=== PATIENT | female | born 2005 | race Caucasian/White ===

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

== ENCOUNTER → 2023-06-25 | Outpatient (CLI) | payer MEDICAID ==
[2023-06-25 15:52] LABS: Alcohol <10 mg/dL
[2023-06-25 20:49] LABS: Basophils # (A) 0.04 X 10*3/uL (0.00-0.10); Basophils % (A) 0.6 %; Eosinophils # (A) 0.11 X 10*3/uL (0.04-0.35); Eosinophils % (A) 1.6 %; HCT 42.5 % (37.2-46.3); HGB 14.3 d/dL (12.0-15.0); Lymphocytes # (A) 1.37 X 10*3/uL (0.90-5.00); Lymphocytes % (A) 20.4 %; MCH 30.8 pg (27.0-32.0); MCHC 33.6 d/dL (32.0-37.0); MCV 91.6 FL (80.0-97.0); Mean Platelet Volume 10.1 FL (9.5-12.2); Monocytes # (A) 0.39 X 10*3/uL (0.20-1.00); Monocytes % (A) 5.8 %; NRBC Per 100 WBC 0 X 10*3/uL (0.00-0.01); Neutrophils # (A) 4.79 X 10*3/uL (1.80-7.70); Neutrophils % (A) 71.3 %; Platelet Count 298 X 10*3/uL (140-440); RBC 4.64 X 10*6/uL (4.10-5.20); RDW 12.4 % (11.5-14.5); WBC 6.72 X 10*3/uL (4.50-10.00)
[2023-06-25 21:04] LABS: ALT 13 U/L (8-44); AST 13 U/L (13-35); Albumin 4.8 d/dL (3.8-4.9); Albumin/Globulin Ratio 2.09 Ratio (1.60-3.17); Alkaline Phosphatase 101 U/L (41-126); BUN/Creat Ratio 9.62 Ratio (12.00-20.00); Blood Urea Nitrogen 7.7 mg/dL (9.0-27.0); Calcium 9.8 mg/dL (8.7-10.3); Chloride 104 mmol/L (96-109); Chol/HDL Ratio 2.41 Ratio; Globulin 2.3 d/dL (1.6-3.3); Glucose 87 mg/dL (70-110); LDL Cholesterol,Calculated 90.8 mg/dL (0.0-131.0); Potassium 5.1 mmol/L (3.5-5.5); Sodium 143 mmol/L (135-145); T4, Free (Free Thyroxine) 1.42 ng/dL (0.83-1.43); Total Bilirubin 0.6 mg/dL (0.3-1.2); Total Protein 7.1 d/dL (6.2-8.2); VLDL Calculation 10.96 mg/dL (5.00-40.00)
== END | disposition home or self-care (01) ==
LOC: LABWHC1 13:35
PROVIDERS: ATTEND Family Medicine
DX: Z00.00 Encounter for general adult medical examination without abnormal findings (principal); Z11.8 Encounter for screening for other infectious and parasitic diseases; Z20.2 Contact with and (suspected) exposure to infections with a predominantly sexual mode of transmission
CPT/HCPCS: 36415; 80053; 80061; 80320; 84439; 84443; 85025; 87491; 87591

== ENCOUNTER → 2023-10-16 | Outpatient (CLI) | payer MEDICAID ==
[2023-10-16 18:24] LABS: HCT 39.4 % (37.2-46.3); HGB 13.7 g/dL (12.0-15.0); MCH 30.8 pg (27.0-32.0); MCHC 34.8 g/dL (32.0-37.0); MCV 88.5 FL (80.0-97.0); Mean Platelet Volume 9.6 FL (9.5-12.2); NRBC Per 100 WBC 0 X 10*3/uL (0.00-0.01); Platelet Count 266 X 10*3/uL (140-440); RBC 4.45 X 10*6/uL (4.10-5.20); RDW 12.4 % (11.5-14.5); WBC 8.54 X 10*3/uL (4.50-10.00)
[2023-10-16 18:31] LABS: Glucose 89 mg/dL (70-110)
[2023-10-16 18:52] LABS: Hepatitis B Surface Antigen Nonreactive; Hepatitis C IgG Antibody Nonreactive
[2023-10-16 20:14] LABS: HIV 2 AB Non-Reactive (Non-Reactive); HIV AB P24 Non-Reactive (Non-Reactive); HIV P24 AG Non-Reactive (Non-Reactive)
== END | disposition home or self-care (01) ==
LOC: LABWHC1 14:00
PROVIDERS: ATTEND Obstetrics & Gynecology
DX: Z34.81 Encounter for supervision of other normal pregnancy, first trimester (principal); Z3A.00 Weeks of gestation of pregnancy not specified
CPT/HCPCS: 36415; 82565; 82947; 85027; 86762; 86777; 86778; 86780; 86803; 86850; 86900; 86901; 87340; 87390

== ENCOUNTER → 2023-11-01 | Outpatient (CLI) | payer MEDICAID ==
--- NOTE | 2023-11-01 15:48 | US ---
EXAMINATION TYPE: Ultrasound OB <= 14 week fetus DATE OF EXAM: 11/01/2023 2:01 PM COMPARISON: NONE CLINICAL INDICATION: Female, 17 years old with history of Z36.89 ENCOUNTER FOR OTHER SPECIFIED ANTENA JESE SCR; Patients 1st . EXAM PERFORMED: Transabdominal (TA) EXAM MEASUREMENTS: GESTATIONAL AGE / DATING Physician Established: Not yet established Dates by LMP: (11 weeks/6 days) EDC: 05/16/2024 Dates by First Scan: (11 weeks/3 days) EDC: 05/19/2024 Dates by Current Scan for: (11 weeks/3 days) EDC: 05/19/2024 MATERNAL ANATOMY Uterus: 10.3 x 5.8 x 8.2cm Right Ovary: 2.6 x 1.8 x 2.2 Left Ovary: 3.1 x 2.0 x 2.1 Post CDS / Adnexa: WNL Presence of free fluid: No free fluid seen Presence of corpus luteal cyst: Not visualized Presence of subchorionic bleed: No subchorionic bleed seen GESTATION / SURVEY CRL: 4.6 cm (11 weeks/3 days) Yolk Sac (normal less than 6mm): 5mm Heart Rate: 150 bpm Rhythm: Normal IUP: Viable IUP Date of LMP: 08/10/2023 Beta HcG (if available): Not available at this time IMPRESSION: 1. Single live intrauterine with estimated gestational age of 11 weeks 6 days by LMP. Curre nt ultrasound biometry is concordant at 11 weeks 3 days. 2. Complete survey recommended at 18-20 weeks.
== END | disposition home or self-care (01) ==
LOC: RADUSWWP 13:32
PROVIDERS: ATTEND Obstetrics & Gynecology
DX: Z36.89 Encounter for other specified antenatal screening (principal); Z3A.11 11 weeks gestation of pregnancy
CPT/HCPCS: 76801

== ENCOUNTER → 2023-12-23 | Outpatient (CLI) | payer MEDICAID ==
--- NOTE | 2023-12-23 12:44 | US ---
EXAMINATION TYPE: US OB anatomy transabd DATE OF EXAM: 12/23/2023 COMPARISON: NONE CLINICAL INDICATION: Female, 18 years old with history of O36.62X0 MATERNAL CARE FOR EXCESS KIAN WTH, SE; anatomy TECHNIQUE: Transabdominal (TA) EXAM MEASUREMENTS: GESTATIONAL AGE / DATING Physician Established: (19 weeks/2 days) EDC: 05/16/2024 Dates by LMP: (19 weeks/2 days) EDC: 05/16/2024 Dates by First Scan: (11 weeks/6 days) EDC: 05/16/2024 Dates by Current Scan for: (18 weeks/6 days) EDC: 05/19/2024 SURVEY IUP: Single PLACENTA: Posterior PREVIA: No previa ISIS: 10.90 cm Normal CERVICAL LENGTH (transabdominal: norm > 3.0cm): 3.0 cm BIOMETRY PRESENTATION: Breech LIE: Longitudinal BPD: 4.0 cm 18 weeks / 2 days HC: 16.3 cm 19 weeks / 1 days AC: 13.2 cm 18 weeks / 5 days FL: 2.9 cm 19 weeks / 0 days ESTIMATED WEIGHT IN GRAMS: 259 grams ESTIMATED WEIGHT IN LBS/OZ: 0 lbs. 9 oz. WEIGHT PERCENTAGE BASED ON ESTABLISHED DATE: 21 % HC/AC: 1.23 cm Normal FL/AC: 22 % Normal HEART RATE: 152 bpm RHYTHM: Normal ANATOMY SEEN (within normal limits): * Lateral Vent (< 1 cm) .6 cm * Cisterna Magna (< 1.1 cm) .5 cm * Nuchal Fold (< 0.6 cm) .3 cm * Cerebellum (varies with age) 1.7 cm Choroid Plexus (bilateral) Midline Falx Cavus Septi Pellucidi Four Chamber Heart Outflow tracts: LVOT/RVOT Stomach Situs Nose / Lips Diaphragm Kidneys (bilateral) Bladder Cord Insert Three Vessel Cord Longitudinal Spine Transverse Spine Arms (bilateral) Legs (bilateral) ANATOMY SEEN (does not appear within normal limits): IMPRESSION: Single live intrauterine gestational sac age 18 weeks 6 days. Additional information as described abo ve.
== END | disposition home or self-care (01) ==
LOC: RADUSWWP 10:26
PROVIDERS: ATTEND Obstetrics & Gynecology
DX: O36.62X1 Maternal care for excessive fetal growth, second trimester, fetus 1 (principal); Z3A.19 19 weeks gestation of pregnancy
CPT/HCPCS: 76811

== ENCOUNTER → 2024-03-23 | Outpatient (CLI) | payer MEDICAID ==
--- NOTE | 2024-03-23 11:05 | US ---
EXAMINATION TYPE: US OB >= 14 wk fetus DATE OF EXAM: 03/23/2024 COMPARISON: 12/23/2023 11/01/2023 CLINICAL INDICATION: Female, 18 years old with history of [id number] GESTATIONAL DIABETES MELLITUS; Growt h TECHNIQUE: Transabdominal (TA) GESTATIONAL AGE / DATING Physician Established: (32 weeks/2 days) EDC: 05/16/2024 Dates by LMP: ( weeks/ days) EDC: Dates by First Scan: ( weeks/ days) EDC: Dates by Current Scan: (32 weeks/3 days) EDC: 05/15/2024 Beta HCG (if available): Not available at this time SURVEY IUP: Single PLACENTA: Fundal PREVIA: No Previa ISIS: 11.3 cm CERVICAL LENGTH (transabdominal: norm > 3.0cm): 3.0 cm CERVICAL LENGTH (transvaginal: norm> 2.5cm: Not performed by personnel counselor. (Supplemental transvaginal imaging performed to verify cervical length.) BIOMETRY PRESENTATION: Vertex LIE: Longitudinal BPD: 8.31 cm 33 weeks / 3 days HC: 29.94 cm 33 weeks / 1 days AC: 27.96 cm 32 weeks / 0 days FL: 6.27 cm 32 weeks / 3 days ESTIMATED WEIGHT IN GRAMS: 1963 grams ESTIMATED WEIGHT IN LBS/OZ: 4 lbs. 5 oz. WEIGHT PERCENTAGE BASED ON ESTABLISHED DATES: 42% HC/AC: 1.07 Normal FL/AC: 22.44 Normal HEART RATE: 129 bpm RHYTHM: Normal MATERNAL WALL MEASUREMENT: cm from skin to anterior uterine wall (if exam limited due to body habitus ). IMPRESSION: Single live intrauterine gestation ultrasound age 32 weeks 3 days.
== END | disposition home or self-care (01) ==
LOC: RADUSWWP 10:03
PROVIDERS: ATTEND Obstetrics & Gynecology
DX: O24.419 Gestational diabetes mellitus in pregnancy, unspecified control (principal); Z3A.32 32 weeks gestation of pregnancy
CPT/HCPCS: 76805

== ENCOUNTER → 2024-04-21 | Outpatient (CLI) | payer MEDICAID ==
--- NOTE | 2024-04-21 21:42 | US ---
EXAMINATION TYPE: US OB >= 14 wk fetus DATE OF EXAM: 04/21/2024 COMPARISON: Multiple, most recent 03/23/2024 CLINICAL INDICATION: Female, 18 years old with history of O24.419 GESTATIONAL DIABETES; Growth TECHNIQUE: Transabdominal (TA) GESTATIONAL AGE / DATING Physician Established: (36 weeks/3 days) EDC: 05/16/2024 Dates by LMP: ( weeks/ days) EDC: Dates by First Scan: ( weeks/ days) EDC: Dates by Current Scan: (36 weeks/5 days) EDC: 05/14/2024 Beta HCG (if available): Not available at this time SURVEY IUP: Single PLACENTA: Posterior PREVIA: No Previa ISIS: 13.3 cm Normal CERVICAL LENGTH (transabdominal: norm > 3.0cm): 3.5 cm BIOMETRY PRESENTATION: Vertex LIE: Longitudinal BPD: 9.13 cm 37 weeks / 1 days HC: 32.67 cm 37 weeks / 1 days AC: 33.33 cm 37 weeks / 2 days FL: 6.8 cm 35 weeks / 0 days ESTIMATED WEIGHT IN GRAMS: 2991 grams ESTIMATED WEIGHT IN LBS/OZ: 6 lbs. 10 oz. WEIGHT PERCENTAGE BASED ON ESTABLISHED DATES: 59%% HC/AC: 0.98 Normal FL/AC: 20% Normal HEART RATE: 143 bpm RHYTHM: Normal IMPRESSION: 1. Single intrauterine gestation estimated at 36 weeks 5 days gestation based on the current ultrasou nd measurements. Cardiac activity measures 143 bpm. 2. Estimated weight based on current measurements 2991 g
== END | disposition home or self-care (01) ==
LOC: RADUSWWP 13:03
PROVIDERS: ATTEND Obstetrics & Gynecology
DX: O24.419 Gestational diabetes mellitus in pregnancy, unspecified control (principal); Z3A.36 36 weeks gestation of pregnancy
CPT/HCPCS: 76805

== ENCOUNTER 2024-05-15 00:15 | Inpatient (IN) | payer MEDICAID | END 2024-05-16 11:30 | disposition home or self-care (01) | DRG 768 | LOC: 4FBP 00:15 | PROVIDERS: ADMIT Obstetrics & Gynecology; ATTEND Obstetrics & Gynecology | PROC: 10E0XZZ Delivery of Products of Conception, External Approach (ICD-10-PCS; principal; 2024-05-15) | PROC: 0HQ9XZZ Repair Perineum Skin, External Approach (ICD-10-PCS; principal; 2024-05-15) | PROC: 0W3R7ZZ Control Bleeding in Genitourinary Tract, Via Natural or Artificial Opening (ICD-10-PCS; principal; 2024-05-15) | PROC: 0UQMXZZ Repair Vulva, External Approach (ICD-10-PCS; principal; 2024-05-15) | DX: O24.420 Gestational diabetes mellitus in childbirth, diet controlled (principal); O72.1 Other immediate postpartum hemorrhage; O99.824 Streptococcus B carrier state complicating childbirth; O70.0 First degree perineal laceration during delivery; O69.81X0 Labor and delivery complicated by cord around neck, without compression, not applicable or unspecified; Z3A.39 39 weeks gestation of pregnancy; Z37.0 Single live birth ==